=== PATIENT | female | born 1940 | race Caucasian/White ===

== ENCOUNTER 2022-10-28 08:10 | Outpatient (CLI) | payer MEDICARE | END 2022-10-28 08:11 | disposition home or self-care (01) | LOC: CSHCT 08:10 | PROVIDERS: ATTEND Student in an Organized Health Care Education/Training Program | DX: H93.A1 Pulsatile tinnitus, right ear (principal); G08 Intracranial and intraspinal phlebitis and thrombophlebitis; I67.1 Cerebral aneurysm, nonruptured | CPT/HCPCS: 70496; 82565 ==

== ENCOUNTER 2023-03-17 16:58 | Emergency (ER) | payer MEDICARE, BC | END 2023-03-17 19:11 | disposition home or self-care (01) | LOC: CSHERS 16:58 | DX: S00.01XA Abrasion of scalp, initial encounter (principal); S50.311A Abrasion of right elbow, initial encounter; S09.90XA Unspecified injury of head, initial encounter; I10 Essential (primary) hypertension; W19.XXXA Unspecified fall, initial encounter | CPT/HCPCS: 70450; 72125 ==

== ENCOUNTER 2023-04-15 10:40 | Outpatient (CLI) | payer MEDICARE ==
[~2023-04-15 10:40] MED LIST: Iopamidol 300 61% 100 ML VIAL FS ONE
== END 2023-04-15 10:41 | disposition home or self-care (01) ==
LOC: CSHCT 10:40
PROVIDERS: ATTEND Urology
DX: N39.46 Mixed incontinence (principal); Z98.890 Other specified postprocedural states; N95.2 Postmenopausal atrophic vaginitis; N39.0 Urinary tract infection, site not specified; R33.9 Retention of urine, unspecified; Z16.20 Resistance to unspecified antibiotic; N13.5 Crossing vessel and stricture of ureter without hydronephrosis; N20.0 Calculus of kidney
CPT/HCPCS: 74178; Q9967

== ENCOUNTER 2023-06-12 13:57 | Emergency (ER) | payer MEDICARE | END 2023-06-12 14:58 | disposition home or self-care (01) | LOC: CSHERS 13:57 | DX: S83.91XA Sprain of unspecified site of right knee, initial encounter (principal); E78.5 Hyperlipidemia, unspecified; I12.9 Hypertensive chronic kidney disease with stage 1 through stage 4 chronic kidney disease, or unspecified chronic kidney disease; N18.9 Chronic kidney disease, unspecified; K21.9 Gastro-esophageal reflux disease without esophagitis; Z79.899 Other long term (current) drug therapy; W06.XXXA Fall from bed, initial encounter ==

== ENCOUNTER 2024-07-04 12:34 | Emergency (ER) | payer MEDICARE, BC ==
[2024-07-04 13:34] LABS: #Basophils 0.02 10x3/uL (0.0-0.2); #Eosinophils 0.06 10x3/uL (0.0-0.5); #Monocytes 0.62 10x3/uL (0.0-1.1); #Neutrophils 4.57 10x3/uL (1.5-8.4); %Basophils 0.2 % (0.0-2.0); %Eosinophils 0.7 % (0.0-6.0); %Lymphocytes 36.4 % (18.0-47.0); %Monocytes 7.5 % (0.0-10.0); Hematocrit 36.8 % (34.9-44.5); Hemoglobin 11.6 g/dL (12.0-15.5); Mean Corpuscular HGB CONC 31.5 g/dL (32.0-36.0); Mean Corpuscular Hemoglobin 31.1 pg (27.0-33.0); Mean Corpuscular Volume 98.7 fL (81.6-98.3); Mean Platelet Volume 9.2 fL (7.4-10.4); Platelet Count 225 10x3/uL (150-450); RBC Distribution Width 13.2 % (11.5-14.5); Red Blood Cell (RBC) Count 3.73 10x6/uL (3.90-5.03); White Blood Cell (WBC) Count 8.3 10x3/uL (3.5-10.5)
[2024-07-04 13:49] LABS: ALT (SGPT) 10 U/L (8-55); AST (SGOT) 17 U/L (5-34); Albumin 3.5 g/dL (3.4-4.8); Alkaline Phosphatase 51 U/L (40-110); Anion Gap 14 mmol/L (10-20); BUN (Urea Nitrogen) 31 mg/dL (9.8-20.1); Bilirubin, Total 0.3 mg/dL (0.2-1.2); Calc. Creatinine Clearance 0 mL/min (70-130); Calcium 8.9 mg/dL (7.8-10.44); Carbon Dioxide 19 mmol/L (23-31); Chloride 105 mmol/L (98-107); Estimated GFR 32; Globulin 3.3 g/dL (2.4-3.5); Glucose 108 mg/dL (83-110); Potassium 4.9 mmol/L (3.5-5.1); Protein, Total 6.8 g/dL (5.8-8.1); Sodium 133 mmol/L (136-145)
[2024-07-04] MEDS ORDERED: cefTRIAXone (ROCEPHIN) 1 GM VIAL ONE (15:32)
[2024-07-04 16:03] LABS: Bilirubin Neg (Negative); Blood, Urine 10 (Negative); Glucose, Urine (Dipstick) Normal (Negative); Ketone, Urine Negative (Negative); Leukocyte 500 (Negative); Nitrite Negative (Negative); Protein, Urine (Dipstick) 15 mg/dl (Neg-Trace); Urobilinogen Normal mg/dL (Less than 2)
[2024-07-04 16:18] LABS: Clarity Hazy (Clear)
[2024-07-04 16:21] LABS: CAUTI Indications for Culture Alt mental st,lethar; Squamous Epithelial 0-3 HPF (0-3)
[2024-07-04 16:22] LABS: Bacteria/HPF 2+ HPF (None Seen)
[2024-07-04 16:23] LABS: Mucous/LPF 1+ LPF (<2+)
[2024-07-04 16:24] LABS: Urine Culture Reflex Yes Yes
== END 2024-07-04 18:30 | disposition short-term general hospital (02) ==
LOC: CSHERS 12:34
DX: N17.9 Acute kidney failure, unspecified (principal); E86.0 Dehydration; N39.0 Urinary tract infection, site not specified; R55 Syncope and collapse; E78.5 Hyperlipidemia, unspecified; I12.9 Hypertensive chronic kidney disease with stage 1 through stage 4 chronic kidney disease, or unspecified chronic kidney disease; N18.30 Chronic kidney disease, stage 3 unspecified; Z79.899 Other long term (current) drug therapy
CPT/HCPCS: 36415; 71045; 80053; 81001; 83605; 85025; 87040; 87086; 93005; J0696

== ENCOUNTER 2025-03-22 23:50 | Inpatient (IN) | payer MEDICARE, BC ==
[2025-03-23 00:58] LABS: Glucose, Urine (Dipstick) Normal (Negative); Leukocyte 500 (Negative); Protein, Urine (Dipstick) 500 mg/dl (Neg-Trace); Specific Gravity, Urine 1.010 (1.005-1.030)
[2025-03-23 01:05] LABS: #Basophils 0.03 10x3/uL (0.0-0.2); #Eosinophils 0.08 10x3/uL (0.0-0.5); #Monocytes 2.03 10x3/uL (0.0-1.1); #Neutrophils 6.35 10x3/uL (1.5-8.4); %Basophils 0.2 % (0.0-2.0); %Eosinophils 0.6 % (0.0-6.0); %Lymphocytes 32.9 % (18.0-47.0); %Monocytes 15.9 % (0.0-10.0); %Neutrophils 49.9 % (40.0-75.0); Hematocrit 37.7 % (34.9-44.5); Hemoglobin 11.7 g/dL (12.0-15.5); Mean Corpuscular Hemoglobin 31.5 pg (27.0-33.0); Mean Corpuscular Volume 101.3 fL (81.6-98.3); Platelet Count 334 10x3/uL (150-450); Red Blood Cell (RBC) Count 3.72 10x6/uL (3.90-5.03); White Blood Cell (WBC) Count 12.76 10x3/uL (3.5-10.5)
[2025-03-23 01:13] LABS: CAUTI Indications for Culture Alt mental st,lethar; WBC/HPF Greater than 50 HPF (0-3)
[2025-03-23 01:14] LABS: Bacteria/HPF 4+ HPF (None Seen)
[2025-03-23 01:15] LABS: Urine Culture Reflex Yes Yes
[2025-03-23] MEDS ORDERED: cefTRIAXone (ROCEPHIN) 1 GM VIAL ONE (01:31)
[2025-03-23 01:34] LABS: ALT (SGPT) 7 U/L (Less than 34); AST (SGOT) 30 U/L (11-34); Albumin 2.7 g/dL (3.1-4.5); Alkaline Phosphatase 50 U/L (40-110); Anion Gap 16 mmol/L (10-20); BUN (Urea Nitrogen) 33 mg/dL (9.8-20.1); Bilirubin, Total 0.3 mg/dL (0.3-1.2); Calc. Creatinine Clearance 0 mL/min (70-130); Calcium 8.7 mg/dL (7.8-10.44); Carbon Dioxide 24 mmol/L (23-31); Chloride 104 mmol/L (98-107); Globulin 4.9 g/dL (2.4-3.5); Glucose 111 mg/dL (83-110); Potassium 3.9 mmol/L (3.5-5.1); Sodium 140 mmol/L (136-145)
[2025-03-23 01:53] LABS: Lipase Less than 4 U/L (8-78)
[2025-03-23] MEDS ORDERED: NOREPINEPHRINE 8 MG/250 ML-D5W 250 ML ONE (02:21)
[2025-03-23] MEDS ORDERED: Ondansetron PF 4 MG/2 ML Vial IVP PRN (02:53)
[2025-03-23 04:02] LABS: #Basophils Less than 0.03 10x3/uL (0.0-0.2); #Eosinophils 0.11 10x3/uL (0.0-0.5); #Monocytes 1.63 10x3/uL (0.0-1.1); #Neutrophils 5.28 10x3/uL (1.5-8.4); %Basophils 0.2 % (0.0-2.0); %Eosinophils 0.9 % (0.0-6.0); %Lymphocytes 40.5 % (18.0-47.0); %Monocytes 13.6 % (0.0-10.0); %Neutrophils 44.2 % (40.0-75.0); Hematocrit 34.7 % (34.9-44.5); Hemoglobin 10.6 g/dL (12.0-15.5); Mean Corpuscular Hemoglobin 31.1 pg (27.0-33.0); Mean Corpuscular Volume 101.8 fL (81.6-98.3); Platelet Count 314 10x3/uL (150-450); Red Blood Cell (RBC) Count 3.41 10x6/uL (3.90-5.03); White Blood Cell (WBC) Count 11.95 10x3/uL (3.5-10.5)
[2025-03-23 04:06] VITALS: BMI 24.0
[2025-03-23 04:34] LABS: Anion Gap 14 mmol/L (10-20); BUN (Urea Nitrogen) 29 mg/dL (9.8-20.1); Calc. Creatinine Clearance 26 mL/min (70-130); Calcium 7.6 mg/dL (7.8-10.44); Carbon Dioxide 20 mmol/L (23-31); Chloride 112 mmol/L (98-107); Glucose 114 mg/dL (83-110); Potassium 3.8 mmol/L (3.5-5.1); Sodium 142 mmol/L (136-145)
[2025-03-23] MEDS: NOREPINEPHRINE 8 MG/250 ML-D5W 250 ML IVPB SCH (04:45)
[2025-03-23] MEDS: Mupirocin 1 GM TUBE NASAL SCH (08:35)
[2025-03-23] MEDS: Heparin 5,000 UNITS/ML VIAL SC SCH (08:35)
[2025-03-23] MEDS: Senokot 8.6 MG TAB PO SCH (08:47)
[2025-03-23] MEDS: Aspirin 81 mg Enteric Coated Tablet PO SCH (08:47)
[2025-03-23] MEDS: QUEtiapine 25 MG TAB PO SCH (08:47)
[2025-03-23] MEDS: Divalproex Sodium 500 MG ER.TAB PO SCH (21:47)
[2025-03-23] MEDS: QUEtiapine 100 MG TAB PO SCH (21:48)
[2025-03-24] MEDS: cefTRIAXone\\ROCEPHIN 1 GM in Sodium Chloride 0.9% 100 ML IVPB SCH (02:11)
[2025-03-24] MEDS: Acetaminophen 325 MG TAB PO PRN (04:33)
[2025-03-24 06:11] LABS: #Basophils 0.03 10x3/uL (0.0-0.2); #Eosinophils 0.13 10x3/uL (0.0-0.5); #Monocytes 1.12 10x3/uL (0.0-1.1); #Neutrophils 4.64 10x3/uL (1.5-8.4); %Basophils 0.4 % (0.0-2.0); %Eosinophils 1.5 % (0.0-6.0); %Lymphocytes 29.6 % (18.0-47.0); %Monocytes 13.2 % (0.0-10.0); %Neutrophils 54.7 % (40.0-75.0); Hematocrit 30.6 % (34.9-44.5); Hemoglobin 9.5 g/dL (12.0-15.5); Mean Corpuscular Hemoglobin 30.9 pg (27.0-33.0); Mean Corpuscular Volume 99.7 fL (81.6-98.3); Platelet Count 309 10x3/uL (150-450); Red Blood Cell (RBC) Count 3.07 10x6/uL (3.90-5.03); White Blood Cell (WBC) Count 8.48 10x3/uL (3.5-10.5)
[2025-03-24 06:41] LABS: Anion Gap 14 mmol/L (10-20); BUN (Urea Nitrogen) 22 mg/dL (9.8-20.1); Calc. Creatinine Clearance 39 mL/min (70-130); Calcium 7.5 mg/dL (7.8-10.44); Carbon Dioxide 16 mmol/L (23-31); Chloride 118 mmol/L (98-107); Glucose 78 mg/dL (83-110); Potassium 4.0 mmol/L (3.5-5.1); Sodium 144 mmol/L (136-145)
[2025-03-25 05:24] LABS: #Basophils 0.03 10x3/uL (0.0-0.2); #Eosinophils 0.12 10x3/uL (0.0-0.5); #Monocytes 1.35 10x3/uL (0.0-1.1); #Neutrophils 4.60 10x3/uL (1.5-8.4); %Basophils 0.3 % (0.0-2.0); %Eosinophils 1.1 % (0.0-6.0); %Lymphocytes 42.2 % (18.0-47.0); %Monocytes 12.6 % (0.0-10.0); %Neutrophils 43.1 % (40.0-75.0); Hematocrit 33.7 % (34.9-44.5); Hemoglobin 10.6 g/dL (12.0-15.5); Mean Corpuscular Hemoglobin 31.4 pg (27.0-33.0); Mean Corpuscular Volume 99.7 fL (81.6-98.3); Platelet Count 348 10x3/uL (150-450); Red Blood Cell (RBC) Count 3.38 10x6/uL (3.90-5.03); White Blood Cell (WBC) Count 10.69 10x3/uL (3.5-10.5)
[2025-03-25 05:39] LABS: Anion Gap 13 mmol/L (10-20); BUN (Urea Nitrogen) 25 mg/dL (9.8-20.1); Calc. Creatinine Clearance 38 mL/min (70-130); Calcium 7.9 mg/dL (7.8-10.44); Carbon Dioxide 17 mmol/L (23-31); Chloride 119 mmol/L (98-107); Glucose 117 mg/dL (83-110); Potassium 3.9 mmol/L (3.5-5.1); Sodium 145 mmol/L (136-145)
[2025-03-26 05:26] LABS: #Basophils 0.03 10x3/uL (0.0-0.2); #Eosinophils 0.32 10x3/uL (0.0-0.5); #Monocytes 1.20 10x3/uL (0.0-1.1); #Neutrophils 4.56 10x3/uL (1.5-8.4); %Basophils 0.3 % (0.0-2.0); %Eosinophils 3.0 % (0.0-6.0); %Lymphocytes 41.2 % (18.0-47.0); %Monocytes 11.2 % (0.0-10.0); %Neutrophils 42.6 % (40.0-75.0); Hematocrit 32.0 % (34.9-44.5); Hemoglobin 10.1 g/dL (12.0-15.5); Mean Corpuscular Hemoglobin 31.3 pg (27.0-33.0); Mean Corpuscular Volume 99.1 fL (81.6-98.3); Platelet Count 353 10x3/uL (150-450); Red Blood Cell (RBC) Count 3.23 10x6/uL (3.90-5.03); White Blood Cell (WBC) Count 10.70 10x3/uL (3.5-10.5)
[2025-03-26 05:51] LABS: Anion Gap 14 mmol/L (10-20); BUN (Urea Nitrogen) 21 mg/dL (9.8-20.1); Calc. Creatinine Clearance 46 mL/min (70-130); Calcium 7.8 mg/dL (7.8-10.44); Carbon Dioxide 18 mmol/L (23-31); Chloride 115 mmol/L (98-107); Glucose 106 mg/dL (83-110); Potassium 3.7 mmol/L (3.5-5.1); Sodium 143 mmol/L (136-145)
[2025-03-26 16:00] VITALS: BP 147/74; TEMP 97.4
== END 2025-03-26 16:15 | DRG 872 ==
LOC: CSHERS 23:50 → CSHICU 03-23 02:56 → CSHTELE 03-23 15:25
PROVIDERS: ADMIT Family Medicine; ATTEND Internal Medicine
PROC: 3E03329 Introduction of Other Anti-infective into Peripheral Vein, Percutaneous Approach (ICD-10-PCS; principal; 2025-03-23)
PROC: 3E033XZ Introduction of Vasopressor into Peripheral Vein, Percutaneous Approach (ICD-10-PCS; 2025-03-23)
DX: A41.59 Other Gram-negative sepsis (principal); N39.0 Urinary tract infection, site not specified; N17.9 Acute kidney failure, unspecified; Z66 Do not resuscitate; E78.5 Hyperlipidemia, unspecified; I12.9 Hypertensive chronic kidney disease with stage 1 through stage 4 chronic kidney disease, or unspecified chronic kidney disease; N18.30 Chronic kidney disease, stage 3 unspecified; K21.9 Gastro-esophageal reflux disease without esophagitis; D69.2 Other nonthrombocytopenic purpura; F41.9 Anxiety disorder, unspecified; B96.4 Proteus (mirabilis) (morganii) as the cause of diseases classified elsewhere; G47.00 Insomnia, unspecified; Z87.440 Personal history of urinary (tract) infections; Z98.890 Other specified postprocedural states; Z98.51 Tubal ligation status; Z90.710 Acquired absence of both cervix and uterus; Z88.8 Allergy status to other drugs, medicaments and biological substances; Z79.899 Other long term (current) drug therapy; Z79.82 Long term (current) use of aspirin; Z79.891 Long term (current) use of opiate analgesic; F25.0 Schizoaffective disorder, bipolar type
CPT/HCPCS: 36415; 70450; 71045; 80048; 80053; 81001; 83605; 83690; 84443; 85025; 87040; 87077; 87086; 87186; 93005; 94760; 96374; 96375; J0696; J1644; J7030

== ENCOUNTER 2025-04-22 12:07 | Emergency (ER) | payer MEDICARE, BC ==
[2025-04-22] MEDS ORDERED: Activase 2 MG VIAL CATH SCH (14:00)
== END 2025-04-22 16:09 | disposition home or self-care (01) ==
LOC: CSHERS 12:07
DX: T82.594A Other mechanical complication of infusion catheter, initial encounter (principal); I12.9 Hypertensive chronic kidney disease with stage 1 through stage 4 chronic kidney disease, or unspecified chronic kidney disease; N18.30 Chronic kidney disease, stage 3 unspecified; E78.5 Hyperlipidemia, unspecified
CPT/HCPCS: 96374; J2997